=== PATIENT | male | born 1950 | race Two or more races ===

== ENCOUNTER 2019-07-18 07:00 | Day surgery (SDC) | payer OTHER ==
[~2019-07-18] VITALS: Ht 167.6 cm; Wt 71.2 kg
[~2019-07-18 07:00] MED LIST: FLUTICASONE-SA1 EAC5; ORAPRED ODT30 MG PO; PHENAGIL TABLE1 EACH PO; PROVENTIL HFA6.7 GM; SPIRIVA RESPIMAT4 G1; TAMS0.4C PO; URECHOLINE25 MG PO; URECHOLINE50 MG PO
[2019-07-19] MEDS ORDERED: AMOX1TAB5 PO (11:18)
== END 2019-07-19 08:00 | disposition home or self-care (01) ==
LOC: CIR.AMB 07:00 → SURG 09:30 → EDSTATUS 09:30 → SURG 09:46 → O/R 09:46 → SURG 10:15 → SURH 15:13 → O/R 15:13 → CIR.AMB 07-19 08:00 → O/R 07-19 12:18 → SURH 07-19 12:18
DX: D12.8 Benign neoplasm of rectum (principal)